=== PATIENT | male | born 2000 | race African-American/Black ===

== ENCOUNTER 2023-08-04 00:42 | Emergency (ER) | payer SELFPAY ==
[~2023-08-04] VITALS: Ht 177.8 cm; Wt 98.4 kg
[2023-08-04 00:49] VITALS: BP 153/97; TEMP 98
[2023-08-04] MEDS ORDERED: KETO10TA2 PO (01:02)
[2023-08-04] MEDS ORDERED: CIPR7.5D9 EACH EAR (01:02)
[2023-08-04] MEDS ORDERED: KETOROLAC TROMETHAMINE INJ 30 MG/ML VIAL ONE (01:08)
[2023-08-04 01:13] VITALS: O2SAT 98
[2023-08-04] MEDS ORDERED: KETOROLAC TROMETHAMINE INJ 30 MG/ML VIAL IM ONE (01:30)
== END 2023-08-04 01:14 | disposition home or self-care (01) ==
LOC: ER 00:45
DX: H60.91 Unspecified otitis externa, right ear (principal)
CPT/HCPCS: 99283; 96372; J1885

== ENCOUNTER 2025-02-07 15:06 | Emergency (ER) | payer OTHER ==
[~2025-02-07] VITALS: Ht 177.8 cm; Wt 104.3 kg
[~2025-02-07 15:06] MED LIST: CIPR7.5D9 EACH EAR; KETO10TA2 PO
[2025-02-07 15:16] VITALS: BP 144/82; TEMP 98.1
[2025-02-07] MEDS ORDERED: CETI-108 PO (15:42)
[2025-02-07 15:47] VITALS: O2SAT 99
== END 2025-02-07 15:48 | disposition home or self-care (01) ==
LOC: ER 15:11
DX: L29.9 Pruritus, unspecified (principal); F17.200 Nicotine dependence, unspecified, uncomplicated; Z60.2 Problems related to living alone

== ENCOUNTER 2025-03-05 21:15 | Emergency (ER) | payer OTHER ==
[~2025-03-05 21:15] MED LIST changes: +CETI-108 PO
== END 2025-03-05 23:55 | disposition left against medical advice (07) ==
LOC: ER 21:29
DX: R10.9 Unspecified abdominal pain (principal); Z53.21 Procedure and treatment not carried out due to patient leaving prior to being seen by health care provider